=== PATIENT | male | born 1955 | race African-American/Black ===

== ENCOUNTER 2018-01-16 15:08 | Emergency (ER) ==
[2018-01-16 15:16] VITALS: BP 174/106; TEMP 97.1; BMI 25.7
--- NOTE | 2018-01-16 16:04 | ED.PDOC ---
General ED Provider: Dr. KAYY GARCIA Chief Complaint: Finger Pain/Injury Stated Complaint: States he injured the finger yesterday after jamming the lt ring finger. The area is swelling and remains very swollened. Has used ice and heat without much relief. Time Seen by Physician: 15:20 Mode of Arrival: Walk-In Information Source: Patient Exam Limitations: No limitations Primary Care Provider: DA SEGURA Nursing and Triage Documentation Reviewed and Agree: Yes Does patient meet sepsis criteria?: No System Inflammatory Response Syndrome: Not Applicable Sepsis Protocol: For patient's 13 years and over: Temp is 96.8 and below OR 101 and greater Pulse >90 BPM Resp >20/minute Acutely Altered Mental Status Are patient's symptoms suggestive of a new infection, such as: -Pneumonia -Skin, Soft Tissue -Endocarditis -UTI -Bone, Joint Infection -Implantable Device -Acute Abdominal Infection -Wound Infection -Meningitis -Blood Stream Catheter Infection -Unknown Musculoskeletal Complaint Exam - Hand/Wrist Complaint/Exam Location of Pain: Reports: Left, Digit #4 Mechanism of Injury: Reports: Trauma Onset/Duration: 2 days Symptoms Are: Still present Onset of Pain: Reports: Immediate, Post accident Initial Severity: Severe Current Severity: Moderate Location: Reports: Discrete Character: Reports: Sharp, Aching, Throbbing Alleviating: Reports: Rest, Cold Aggravating: Reports: Movement Associated Signs and Symptoms: Reports: Swelling, Numbness, Tingling Dominant Hand: Right Related Surgical History: Reports: None Hand/Wrist Findings: Present: Swelling, Ecchymosis Tenderness: Present: Phalanx Compartment Syndrome Risk Factors: Present: Pain Differential Diagnoses: Contusion, Closed Fracture, Strain, Tenosynovitis Review of Systems - Review Of Systems Constitutional: Reports: No symptoms Eyes: Reports: No symptoms Ears, Nose, Mouth, Throat: Reports: No symptoms Respiratory: Reports: No symptoms Cardiac: Reports: No symptoms GI: Reports: No symptoms : Reports: No symptoms Musculoskeletal: Reports: Muscle pain Skin: Reports: No symptoms Neurological: Reports: No symptoms Endocrine: Reports: No symptoms Hematologic/Lymphatic: Reports: No symptoms All Other Systems: Reviewed and Negative Past Medical History - Past Medical History Previously Healthy: Yes Endocrine: Reports: None Cardiovascular: Reports: None Respiratory: Reports: None Hematological: Reports: None Gastrointestinal: Reports: None Genitourinary: Reports: None Neuro/Psych: Reports: None Musculoskeletal: Reports: None Cancer: Reports: None - Surgical History General Surgical History: Reports: None - Family History Family History: Reports: None - Social History Smoking Status: Current every day smoker, Light tobacco smoker Hx Substance Use: No Alcohol Screening: Occasionally - Immunizations Tetanus Shot up to Date: (UNKNOWN) Physical Exam - Physical Exam Appearance: Well-appearing, No pain distress, Well-nourished Eyes: CHERI, EOMI, Conjunctiva clear ENT: Ears normal, Nose normal, Oropharynx normal Respiratory: Airway patent, Breath sounds clear, Breath sounds equal, Respirations nonlabored Cardiovascular: RRR, Pulses normal, No rub, No murmur GI/: Soft, Nontender, No masses, Bowel sounds normal, No Organomegaly Musculoskeletal: Normal strength, ROM intact, No edema, No calf tenderness, Limited ROM, Edema (ring finger) Skin: Warm, Dry, Normal color Neurological: Sensation intact, Motor intact, Reflexes intact, Cranial nerves intact, Alert, Oriented Psychiatric: Affect appropriate, Mood appropriate Critical Care Note - Critical Care Note Total Time (mins): 0 Course - Course Orders, Labs, Meds: Orders Category Date Time Status FINGER(S), LEFT MIN 2V Stat RADS 01/16/18 16:15 Completed Vital Signs: Temp Pulse Resp BP Pulse Ox 01/16/18 15:09 97.1 F L 69 18 174/106 H 96 Departure - Departure Time of Disposition: 17:50 Disposition: HOME SELF-CARE Discharge Problem: Strain of finger of left hand Instructions: Jammed Finger (ED) Condition: Good Pt referred to PMD for follow-up: Yes (as needed) IPMP verified?: No Additional Instructions: Use splint as directed Take ibuprofen for pain as needed Allergies/Adverse Reactions: Allergies No Known Drug Allergies Adverse Reaction (Verified 01/16/18 15:16) Home Medications: Ambulatory Orders Aspirin [Aspirin EC] 81 mg PO DAILY 01/16/18 Disposition Discussed With: Patient
--- NOTE | 2018-01-17 07:44 | DI ---
EXAM: Left finger fourth digit three-view HISTORY: Injury left fourth digit COMPARISON: None FINDINGS: The bones are normal. The joints are normal. Mild soft tissue prominence of the dorsal asp ect near the fourth PIP joint. IMPERSSION: 1. No fracture or dislocation. 2. Mild soft tissue prominence dorsal aspect near the fourth PIP joint.
== END 2018-01-16 18:15 | disposition home or self-care (01) ==
LOC: ED 15:08
DX: S63.615A Unspecified sprain of left ring finger, initial encounter (principal); W22.8XXA Striking against or struck by other objects, initial encounter; F17.210 Nicotine dependence, cigarettes, uncomplicated
CPT/HCPCS: 99283